=== PATIENT | female | born 1955 | race Caucasian/White ===

== ENCOUNTER 2019-04-03 07:57 | Outpatient (RCR) | payer OTHER, SELFPAY ==
--- NOTE | 2019-04-03 08:51 | PTOPEVAL ---
Thank you for referring this patient to [facility] [place]. Please review, sign, date and return this plan of care SADIQ. I agree with and certify that the following plan of care is medically necessary. Referring Physician Date Admitting Provider: Attending Provider: Joselyn Montoya NP Referring Provider: *[facility] Outpatient Evaluation Start: 04/03/19 08:13 Freq: Status: Active Protocol: Document 04/03/19 08:14 Breanna (Rec: 04/03/19 08:43 [id number]) Therapy Assessment Status Assessment Status Assessment Status Evaluation Outpatient Past Medical History Cardiovascular History Hx Hypertension Yes Gastrointestinal History Hx Gall Bladder Disease Yes Endocrine History Hx Diabetes Yes Reproductive History Hx Hysterectomy Yes Evaluation Information Problem Diagnosis R shoulder pain Onset 03/26/19 Subjective Information patient reports she fell last Query Text:As Reported By Patient/ tuesday injuring her R shoulder Family . she reports she was chasing after her dog when her foot slipped out from under her. she reports she fell forward and landed with her R arm/ shoulder tucked into her side. she reports she could feel pain right away. she reports x -rays were negative for acute injury. Prior Level of Function Comments Additional Prior Level of Function patient reports she has Comments difficulty lifting her R shoulder above her head. she reports she also is having some rib pain and trouble breathing due to this rib pain . patient reports prior to her fall, no issues with her R shoulder at all. she reports she was independent and pain free with reaching overhead into cabinets and lifting objects up from tables. Pain Assessment Timing of Pain Assessment Timing of Pain Assessment Assessment Pain Scale Pain Scale Used Numeric (1 - 10) Self Report Pain Assessment Right Shoulder(s) Reported Pain Level 7 Pain Description Stabbing Pain Frequency Acute,Continuous Current Pain Intensity 7 Lowest Pain Intensity 4 Greatest Pain Intensity
--- NOTE | 2019-05-03 15:43 | PCPTNOTE ---
05/03/19 - patient has called and reprots that she would like to perform exercises on her own at home. she will be dc'd from skilled PT services and all progress towards goals will be taken from her most recent evaluation/note. JUSTIN
== END 2019-04-03 09:28 | disposition home or self-care (01) ==
LOC: CHSPT 07:57
PROVIDERS: PCP Nurse Practitioner Family; Visit Provider Nurse Practitioner Family
DX: M25.511 Pain in right shoulder (principal)
CPT/HCPCS: 97014; 97110; 97161; G0283

== ENCOUNTER 2020-01-15 01:33 | Outpatient (CLI) | payer OTHER, SELFPAY ==
[2020-01-15 20:51] LABS: SARS-CoV-2 RNA PCR Negative
== END 2020-01-15 01:34 | disposition home or self-care (01) ==
LOC: ANHCOVIDDT 01:34
PROVIDERS: PCP Family Medicine; Visit Provider Surgery
DX: Z01.812 Encounter for preprocedural laboratory examination (principal); Z20.828 Contact with and (suspected) exposure to other viral communicable diseases
CPT/HCPCS: 87635; C9803; U0003

== ENCOUNTER 2020-01-17 01:52 | Day surgery (SDC) | payer OTHER, SELFPAY ==
[2020-01-11 13:39] VITALS: BMI 40.2
--- NOTE | 2020-01-16 12:23 | WPDANESEPPF ---
Anes - Initial Pre Proc Eval Procedure: Operation Date: 01/17/20 08:30 Proposed Procedures p Screening Colonoscopy - Vlad Nash DO Date/Time: 01/16/20 12:23 Surgeon: Vlad Nash DO Pre Op Diagnosis: neoplasm screening Patient Data Age: 64 Gender: F Height: 1.73 m Weight: 120 kg Allergies Allergy/AdvReac Type Severity Reaction Status Date / Time No Known Allergies Allergy Verified 01/11/20 13:35 Home Medications Medication Instructions Recorded Confirmed Type metformin 1,000 mg tablet 1,000 mg PO BID #180 tablet 05/16/19 01/11/20 Rx glimepiride 4 mg tablet 4 mg PO QAM #30 tablet 11/30/19 01/11/20 Rx lisinopril 20 1 tablet PO DAILY #30 tablet 11/30/19 01/11/20 Rx mg-hydrochlorothiazide 25 mg tablet pantoprazole 40 mg tablet,delayed See Rx Instructions .ROUTE 11/30/19 01/11/20 Rx release .COMPLEX #30 tablet verapamil 240 mg 24 hr 240 mg PO DAILY #30 cap 11/30/19 01/11/20 Rx capsule,extended release blood sugar diagnostic #100 ea 12/25/19 Rx lancets 33 gauge #100 ea 12/25/19 Rx atorvastatin [Lipitor] 40 mg PO DAILY 01/11/20 01/17/20 History citalopram [Celexa] 20 mg PO DAILY 01/11/20 01/11/20 History Patient hx anesthesia problems: none Family hx anesthesia problems: none PMFSH Past Medical History Medical History (Updated 01/16/20 @ 12:24 by Poncho Turner MD) Chronic GERD Depression Hyperlipidemia Hypertension Irregular bowel habits Morbid obesity with BMI of 40.0-44.9, adult Tension headache Type 2 diabetes mellitus Surgical History Surgical History H/O: hysterectomy Hx of cholecystectomy Family History Family History Father Stomach cancer Mother Breast cancer Liver cancer Social History Social History Smoking packs per day: 1 Smoking cigarettes per day: 20.0 Years smoked: 35 Smoking pack-years: 35.00 Smoking status: Current every day smoker Tobacco type: cigarettes Alcohol intake: current Substance use: never Substance use type: does not use Living arrangements: alone 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 Gender identity (if verbalized by the patient): Female Sexual Orientation (if Verbalized by the Patient): Straight or Heterosexual Spiritual care concerns: No Anes - Eval Final PreProcedure Day of Procedure 01/16/20 12:23 Patient weight: morbidly obese Heart: regular rate and rhythm Lungs: clear to auscultation and normal air movement Airway: Mallampati scale class II Neurological: alert and oriented Last oral intake: >/= 8 hours ASA classification: III Emergent: no Anesthetic plan: proceed Anesthesia type and monitoring: general GIVS Informed Consent: The patient's anesthetic plan and its attendant risks and benefits were discussed with the patient/family/POA. Questions were solicited and answers provided to the satisfaction of the patient/family/POA.
[2020-01-17 07:47] VITALS: BP 137/62; PULSE 66; RESP 14; TEMP 36.2; O2SAT 96
[2020-01-17] MEDS: LACTATED RINGERS 1,000 ML 150 ML IV CONT (07:51)
[2020-01-17 07:57] LABS: Glucose Point of Care 268 (65-105)
--- NOTE | 2020-01-17 08:47 | PM.IMHP ---
H&P: HPI History of Present Illness Date/Time: 01/17/20 08:47 Chief complaint: neoplasm screening Narrative: Charity Martin is a 64 year old female who presents for colonoscopy. Last colonoscopy was 7-8 years ago and polyps were found. She has also been experiencing chronic diarrhea. Denies fam hx colon cancer. Review of Systems Review of Systems: All systems reviewed & are unremarkable except as noted in HPI and below Eyes: Eyes: Denies change in vision ENT: Denies hearing loss, Denies neck pain and Denies sore throat Cardiovascular: Cardiovascular: Denies chest pain and Denies dyspnea Respiratory: Respiratory: Denies cough, Denies dyspnea and Denies wheezing Genitourinary: Genitourinary: Denies hematuria and Denies dysuria Musculoskeletal: Musculoskeletal: Denies arthralgias, Denies joint swelling and Denies neck pain Allergic/Immunologic: Allergic/Immunologic: Denies wheezing PMFSH Past Medical History Medical History Chronic GERD Depression Hyperlipidemia Hypertension Irregular bowel habits Morbid obesity with BMI of 40.0-44.9, adult Tension headache Type 2 diabetes mellitus Surgical History Surgical History H/O: hysterectomy Hx of cholecystectomy Family History Family History Father Stomach cancer Mother Breast cancer Liver cancer Social History Social History Smoking packs per day: 1 Smoking cigarettes per day: 20.0 Years smoked: 35 Smoking pack-years: 35.00 Smoking status: Current every day smoker Tobacco type: cigarettes Alcohol intake: current Substance use: never Substance use type: does not use Living arrangements: alone 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 Gender identity (if verbalized by the patient): Female Sexual Orientation (if Verbalized by the Patient): Straight or Heterosexual Spiritual care concerns: No Meds Home Medications and Allergies Home Medications Medication Instructions Recorded Confirmed Type metformin 1,000 mg tablet 1,000 mg PO BID #180 tablet 05/16/19 01/11/20 Rx glimepiride 4 mg tablet 4 mg PO QAM #30 tablet 11/30/19 01/11/20 Rx lisinopril 20 1 tablet PO DAILY #30 tablet 11/30/19 01/11/20 Rx mg-hydrochlorothiazide 25 mg tablet pantoprazole 40 mg tablet,delayed See Rx Instructions .ROUTE 11/30/19 01/11/20 Rx release .COMPLEX #30 tablet verapamil 240 mg 24 hr 240 mg PO DAILY #30 cap 11/30/19 01/11/20 Rx capsule,extended release blood sugar diagnostic #100 ea 12/25/19 Rx lancets 33 gauge #100 ea 12/25/19 Rx atorvastatin [Lipitor] 40 mg PO DAILY 01/11/20 01/17/20 History citalopram [Celexa] 20 mg PO DAILY 01/11/20 01/11/20 History Allergies Allergy/AdvReac Type Severity Reaction Status Date / Time No Known Allergies Allergy Verified 01/11/20 13:35 Vital Signs Vital Signs - 24 hr 01/17/20 07:47 Temperature 36.2 C L Pulse Rate 66 Respiratory Rate 14 Blood Pressure 137/62 Pulse Oximetry 96 Exam Const: General: alert; No acute distress Orientation/consciousness: patient oriented x3 Limitations: no limitations HENMT: Head: normocephalic and atraumatic Ears: hearing grossly normal bilaterally General nose exam: Normal external nose present and Normal nares present Mouth: Yes Normal oral and palatal mucosa present and Yes moist mucous membranes Eyes: General: appearance normal, both eyes and all related structures Conjunctivae: conjunctivae normal Sclera: sclerae normal Pupils: Equal, round and reactive pupils present EOM: EOMs intact bilaterally Neck: Neck: normal visual inspection, full ROM, no lymphadenopathy, supple and no JVD Lymphatic: no lymphadenopathy noted Chest: Chest palpation & inspection: normal inspection of the chest Resp: Effort
[2020-01-17 09:54] VITALS: BP 125/89; PULSE 78; RESP 16; O2SAT 98
[2020-01-17 10:04] VITALS: BP 145/63; PULSE 64; RESP 18; O2SAT 98
[2020-01-17 10:14] VITALS: BP 104/55; PULSE 64; RESP 18; O2SAT 95
[2020-01-17] MEDS: ONDANSETRON INJ 4 MG/2 ML VIAL IV PUSH (10:20)
[2020-01-17 10:24] VITALS: BP 122/60; PULSE 60; RESP 18; O2SAT 95
[2020-01-17 10:34] VITALS: BP 163/84; PULSE 60; RESP 18; O2SAT 97
== END 2020-01-17 10:43 | disposition home or self-care (01) ==
PROVIDERS: PCP Family Medicine; Visit Provider Surgery
PROC: 0DJD8ZZ Inspection of Lower Intestinal Tract, Via Natural or Artificial Opening Endoscopic (ICD-10-PCS; CPT 45378; principal; 2020-01-17 08:30)
DX: Z12.11 Encounter for screening for malignant neoplasm of colon (principal); R19.7 Diarrhea, unspecified; D12.0 Benign neoplasm of cecum; D12.2 Benign neoplasm of ascending colon; D12.3 Benign neoplasm of transverse colon; D12.8 Benign neoplasm of rectum; K63.5 Polyp of colon; K64.8 Other hemorrhoids; I10 Essential (primary) hypertension; E78.5 Hyperlipidemia, unspecified; E11.9 Type 2 diabetes mellitus without complications; K21.9 Gastro-esophageal reflux disease without esophagitis; F32.9 Major depressive disorder, single episode, unspecified; Z68.41 Body mass index [BMI] 40.0-44.9, adult; F17.210 Nicotine dependence, cigarettes, uncomplicated
CPT/HCPCS: 45385; 45380; 88305; J2405; J2704; J7120

== ENCOUNTER 2020-03-03 13:10 | Outpatient (CLI) | payer OTHER, SELFPAY ==
[2020-03-04 18:19] LABS: SARS-CoV-2 RNA PCR Positive
== END 2020-03-03 13:11 | disposition home or self-care (01) ==
PROVIDERS: PCP Family Medicine; Visit Provider Family Medicine
DX: U07.1 COVID-19 (principal)
CPT/HCPCS: 87635; C9803; U0003

== ENCOUNTER 2021-04-09 00:03 | Day surgery (SDC) | payer OTHER, SELFPAY ==
[2021-02-13 13:20] VITALS: BMI 33.8
[2021-03-16 09:06] VITALS: BMI 33.8
--- NOTE | 2021-03-16 09:11 | PC.NURSE ---
Rescheduled for colonoscopy from February to 03/26/20. Confirmed medications, allergies and health history as well as new date and time.
[2021-03-25 16:06] VITALS: BMI 33.8
--- NOTE | 2021-03-25 16:10 | PC.NURSE ---
Spoke with pt regarding rescheduled colonoscopy. Updated pt on arrival/procedure times. Pt verbalized understanding of updated information. Pt verified no changes to health history or home medications since previous PAT call complete.
[2021-04-09 08:10] VITALS: BP 144/56; PULSE 93; RESP 20; TEMP 36.2; O2SAT 97
[2021-04-09] MEDS: LACTATED RINGERS 1,000 ML 150 ML IV CONT (08:15)
[2021-04-09 08:22] LABS: Glucose Point of Care 373 mg/dl (65-105)
--- NOTE | 2021-04-09 09:23 | WPDANESEPPF ---
Anes - Initial Pre Proc Eval Procedure: Operation Date: 04/09/21 09:15 Proposed Procedures p Colonoscopy - Vlad Nash DO Date/Time: 04/09/21 09:23 Surgeon: Vlad Nash DO Pre Op Diagnosis: hx of colon polyps Patient Data Age: 65 Gender: F Height: 1.7 m Weight: 104.4 kg Last Vital Signs Temp 97.2 F L 04/09/21 08:10 Pulse 93 04/09/21 08:10 Resp 20 04/09/21 08:10 BP 144/56 H 04/09/21 08:10 Pulse Ox 97 04/09/21 08:10 Allergies Allergy/AdvReac Type Severity Reaction Status Date / Time No Known Allergies Allergy Verified 03/25/21 16:05 Home Medications Medication Instructions Recorded Confirmed Type blood sugar diagnostic #100 ea 03/11/21 03/11/21 Rx glimepiride 4 mg tablet 4 mg PO DAILY #90 tablet 03/11/21 03/25/21 Rx lancets 33 gauge #100 ea 03/11/21 03/11/21 Rx lisinopril 20 1 tablet PO DAILY #90 tablet 03/11/21 03/25/21 Rx mg-hydrochlorothiazide 25 mg tablet nystatin 100,000 unit/gram topical 1 applic TOPICAL BID 7 Days #30 g 03/11/21 03/25/21 Rx cream pantoprazole 40 mg tablet,delayed 40 mg PO DAILY #90 tablet 03/11/21 03/25/21 Rx release verapamil 240 mg tablet,extended 240 mg PO DAILY #90 tablet 03/11/21 03/25/21 Rx release atorvastatin 40 mg PO DAILY 03/25/21 03/25/21 History citalopram 20 mg PO DAILY 03/25/21 03/25/21 History metformin 1,000 mg PO BID 03/25/21 03/25/21 History Laboratory Tests 04/09/21 08:17 POC Capillary Glucose 373 mg/dl H mg/dl (65-105) Patient hx anesthesia problems: none Family hx anesthesia problems: none Results Review: All pre-operative results and documents have been reviewed as part of the pre-operative evaluation. [facility] Past Medical History Medical History Chronic GERD Depression Hyperlipidemia Hypertension Irregular bowel habits Morbid obesity with BMI of 40.0-44.9, adult Tension headache Type 2 diabetes mellitus Surgical History Surgical History H/O: hysterectomy Hx of cholecystectomy Family History Family History Father Stomach cancer Mother Breast cancer Liver cancer Social History Social History Smoking packs per day: 1 Smoking cigarettes per day: 20.0 Years smoked: 35 Smoking pack-years: 35.00 Smoking status: Current every day smoker Tobacco type: cigarettes Alcohol intake: current Drinks per week: 3 Alcohol use details: social Substance use: never Substance use type: does not use Living arrangements: with family 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 Gender identity (if verbalized by the patient): Female Sexual Orientation (if Verbalized by the Patient): Straight or Heterosexual Spiritual care concerns: No Anes - Eval Final PreProcedure Day of Procedure 04/09/21 09:23 Patient weight: obese Heart: regular rate and rhythm Lungs: clear to auscultation Airway: Mallampati scale class II Neurological: alert and oriented Last oral intake: >/= 8 hours ASA classification: III Emergent: no Anesthetic plan: proceed Anesthesia type and monitoring: general GIVS and standard monitoring Results Review: All pre-operative results and documents have been reviewed as part of the pre-operative evaluation. Informed Consent: The patient's anesthetic plan and its attendant risks and benefits were discussed with the patient/family/POA. Questions were solicited and answers provided to the satisfaction of the patient/family/POA.
--- NOTE | 2021-04-09 09:31 | PM.IMHP ---
H&P: HPI History of Present Illness Date/Time: 04/09/21 09:31 Chief Complaint: history of colon polyps Narrative: this is a 65-year-old woman who presents for colonoscopy. She last had a colonoscopy 1 year ago and multiple polyps were removed. There was a large polyp in the cecum that was removed in a piecemeal fashion. She denies any significant changes since last colonoscopy. There is no family history of colon cancer. Review of Systems Review of Systems: All systems reviewed & are unremarkable except as noted in HPI and below Constitutional: Constitutional: Denies chills, Denies fever(s), Denies headache(s) and Denies weight loss Eyes: Eyes: Denies change in vision ENT: Denies dizziness, Denies headache(s), Denies neck mass and Denies throat swelling Cardiovascular: Cardiovascular: Denies chest pain, Denies lightheadedness and Denies dyspnea Respiratory: Respiratory: Denies cough, Denies dyspnea and Denies wheezing Gastrointestinal: Gastrointestinal: Denies abdominal pain, Denies change in bowel habits, Denies nausea and Denies vomiting Genitourinary: Genitourinary: Denies hematuria and Denies dysuria Musculoskeletal: Musculoskeletal: Reports as per HPI Integumentary/Breasts: Skin/Breast: Reports as per HPI Neurologic: Denies dizziness and Denies headache(s) Allergic/Immunologic: Allergic/Immunologic: Denies throat swelling and Denies wheezing PMF Past Medical History Medical History Chronic GERD Depression Hyperlipidemia Hypertension Irregular bowel habits Morbid obesity with BMI of 40.0-44.9, adult Tension headache Type 2 diabetes mellitus Surgical History Surgical History H/O: hysterectomy Hx of cholecystectomy Family History Family History Father Stomach cancer Mother Breast cancer Liver cancer Social History Social History Smoking packs per day: 1 Smoking cigarettes per day: 20.0 Years smoked: 35 Smoking pack-years: 35.00 Smoking status: Current every day smoker Tobacco type: cigarettes Alcohol intake: current Drinks per week: 3 Alcohol use details: social Substance use: never Substance use type: does not use Living arrangements: with family 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 Gender identity (if verbalized by the patient): Female Sexual Orientation (if Verbalized by the Patient): Straight or Heterosexual Spiritual care concerns: No Meds Home Medications and Allergies Home Medications Medication Instructions Recorded Confirmed Type blood sugar diagnostic #100 ea 03/11/21 03/11/21 Rx glimepiride 4 mg tablet 4 mg PO DAILY #90 tablet 03/11/21 03/25/21 Rx lancets 33 gauge #100 ea 03/11/21 03/11/21 Rx lisinopril 20 1 tablet PO DAILY #90 tablet 03/11/21 03/25/21 Rx mg-hydrochlorothiazide 25 mg tablet nystatin 100,000 unit/gram topical 1 applic TOPICAL BID 7 Days #30 g 03/11/21 03/25/21 Rx cream pantoprazole 40 mg tablet,delayed 40 mg PO DAILY #90 tablet 03/11/21 03/25/21 Rx release verapamil 240 mg tablet,extended 240 mg PO DAILY #90 tablet 03/11/21 03/25/21 Rx release atorvastatin 40 mg PO DAILY 03/25/21 03/25/21 History citalopram 20 mg PO DAILY 03/25/21 03/25/21 History metformin 1,000 mg PO BID 03/25/21 03/25/21 History Allergies Allergy/AdvReac Type Severity Reaction Status Date / Time No Known Allergies Allergy Verified 03/25/21 16:05 Vital Signs Vital Signs - 24 hr 04/09/21 08:10 Temperature 36.2 C L Pulse Rate 93 Respiratory Rate 20 Blood Pressure 144/56 H Pulse Oximetry 97 Exam Const: General: no acute distress and alert Orientation/consciousness: patient oriented x3 HENMT: Head: normocephalic and atraumatic Ears: hearing grossly normal bilaterally General nose
[2021-04-09 10:05] VITALS: BP 122/67; PULSE 79; RESP 18; O2SAT 96
[2021-04-09 10:15] VITALS: BP 135/70; PULSE 85; RESP 19; O2SAT 98
[2021-04-09 10:25] VITALS: BP 130/72; PULSE 75; RESP 25; O2SAT 98
== END 2021-04-09 10:29 | disposition home or self-care (01) ==
PROVIDERS: PCP Family Medicine; Visit Provider Surgery
PROC: 0DJD8ZZ Inspection of Lower Intestinal Tract, Via Natural or Artificial Opening Endoscopic (ICD-10-PCS; CPT 45378; principal; 2021-04-09 09:15)
DX: Z12.11 Encounter for screening for malignant neoplasm of colon (principal); K62.1 Rectal polyp; K63.5 Polyp of colon; I10 Essential (primary) hypertension; E78.5 Hyperlipidemia, unspecified; E11.9 Type 2 diabetes mellitus without complications; K21.9 Gastro-esophageal reflux disease without esophagitis; F32.9 Major depressive disorder, single episode, unspecified; E66.9 Obesity, unspecified; Z68.36 Body mass index [BMI] 36.0-36.9, adult; F17.210 Nicotine dependence, cigarettes, uncomplicated; Z79.84 Long term (current) use of oral hypoglycemic drugs
CPT/HCPCS: 45380; 82948; 88305; J2704; J7120

== ENCOUNTER 2022-06-18 13:28 | Outpatient (CLI) | payer MEDICARE, SELFPAY ==
[2022-06-18 13:43] LABS: Hematocrit 45.2 % (35.0-42.0); Hemoglobin 15.1 g/dL (11.7-13.8); Mean Corpuscular HGB Conc 33.4 g/dL (32.0-36.0); Mean Corpuscular Hemoglobin 29.5 pg (27.0-31.0); Mean Corpuscular Volume 88.3 fL (78.0-102.0); Mean Platelet Volume 9.1 fl (9.2-11.8); Platelet Count Result 335 K/mm3 (150-420); Red Blood Count 5.12 M/mm3 (4.20-5.40); Red Cell Distribution Width 12.8 % (11.6-14.4)
[2022-06-18 14:01] LABS: Creatinine Urine 47.01 mg/dL (40-278); MALB Creatinine Ratio 27.6 mg/g (0-30); Microalbumin Urine Random < 13.0 mg/L
[2022-06-18 14:03] LABS: Hemoglobin A1C 10.2 % (<5.7)
[2022-06-18 14:26] LABS: Alanine Aminotransferase 30 U/L (14-59); Albumin Level 3.7 g/dL (3.4-5.0); Alkaline Phosphatase 144 U/L (46-116); Anion Gap 10 mmol/L (8-16); Aspartate Amino Transferase 19 U/L (15-37); Bilirubin,Total 0.5 mg/dL (0.00-1.00); Blood Urea Nitrogen 9 mg/dL (7-18); Calcium 9.5 mg/dL (8.5-10.1); Carbon Dioxide 28 mmol/L (21-32); Chloride 99 mmol/L (98-108); Cholesterol 195 mg/dL (0-200); Estimated Glomerular Filt Rate > 60; Glucose 153 mg/dL (70-99); HDL Direct 46 mg/dL (40-60); LDL Cholesterol Calculated 108 mg/dL (<130); Osmolality Calculated 285 mOsm/kg (285-295); Potassium 3.9 mmol/L (3.5-5.1); Sodium 137 mmol/L (136-145); Total Protein 7.3 g/dL (6.4-8.2); Triglycerides 203 mg/dL (0-150)
== END 2022-06-18 13:29 | disposition home or self-care (01) ==
PROVIDERS: PCP Family Medicine; Visit Provider Family Medicine
DX: I10 Essential (primary) hypertension (principal); E11.9 Type 2 diabetes mellitus without complications
CPT/HCPCS: 36415; 80053; 80061; 82043; 83036; 85027

== ENCOUNTER 2022-06-23 08:49 | Outpatient (CLI) | payer MEDICARE, SELFPAY ==
--- NOTE | ~2022-06-23 | MM_ITS ---
EXAMINATION: MM screening karthik BI w cristy HISTORY: Screening mammogram, family history of breast cancer in her mother. TECHNIQUE: Craniocaudal and mediolateral oblique 3-D tomosynthesis images were obtained and synthetic 2-D images were generated. CAD analysis was submitted and interpreted. COMPARISON: 09/07/2017 and 06/12/2012 BREAST PARENCHYMAL COMPOSITION:There are scattered areas of fibroglandular density. FINDINGS: Stable probable intramammary lymph nodes. No suspicious mass, calcification, or architectur al distortion are identified in either breast to suggest malignancy. There has been no suspicious int erval change. IMPRESSION: No mammographic evidence of malignancy. Recommend routine screening mammography in one year. BI-RADS Category 2: Benign finding(s). Reviewed, dictated and finalized at location .
== END 2022-06-23 08:50 | disposition home or self-care (01) ==
LOC: CHSIMG 08:50
PROVIDERS: PCP Family Medicine; Visit Provider Family Medicine
DX: Z12.31 Encounter for screening mammogram for malignant neoplasm of breast (principal)
CPT/HCPCS: 77063; 77067

== ENCOUNTER 2023-11-15 08:17 | Outpatient (CLI) | payer MEDICARE, SELFPAY ==
[2023-11-15 08:31] LABS: Basophils Absolute Auto 0.07 K/mm3 (0.00-0.10); Basophils Percent Auto 0.6 % (0.0-1.0); Eosinophils Absolute Auto 0.12 K/mm3 (0.02-0.50); Eosinophils Percent Auto 1.1 % (1.0-6.0); Hematocrit 42.5 % (35.0-42.0); Hemoglobin 14.3 g/dL (11.7-13.8); Immature Granulocyte Absolute 0.05 K/mm3 (0.00-0.00); Immature Granulocyte Percent A 0.4 % (0.0-0.0); Lymphocytes Absolute Auto 3.61 K/mm3 (1.10-4.50); Lymphocytes Percent Auto 31.6 % (18.0-42.0); Mean Corpuscular HGB Conc 33.6 g/dL (32-36); Mean Corpuscular Volume 89.3 fL (78.0-102.0); Mean Platelet Volume 8.6 fl (9.2-11.8); Monocytes Absolute Auto 0.89 K/mm3 (0.10-0.90); Monocytes Percent Auto 7.8 % (2.0-11.0); Neutrophils Absolute Auto 6.67 K/mm3 (1.70-7.20); Neutrophils Percent Auto 58.5 % (50.0-70.0); Platelet Count Result 318 K/mm3 (150-420); Red Blood Count 4.76 M/mm3 (4.20-5.40); Red Cell Distribution Width 13.6 % (11.6-14.4); White Blood Count 11.4 K/mm3 (4.8-10.8)
[2023-11-15 08:39] LABS: Hemoglobin A1C 6.5 % (<5.7)
[2023-11-15 09:18] LABS: Alanine Aminotransferase 19 U/L (14-59); Albumin Level 3.5 g/dL (3.4-5.0); Alkaline Phosphatase 109 U/L (46-116); Anion Gap 7 mmol/L (4-12); Aspartate Amino Transferase 11 U/L (15-37); Bilirubin,Total 0.4 mg/dL (0.00-1.00); Blood Urea Nitrogen 12 mg/dL (7-18); Calcium 9.3 mg/dL (8.5-10.1); Carbon Dioxide 30 mmol/L (21-32); Chloride 99 mmol/L (98-108); Cholesterol 184 mg/dL (0-200); Estimated Glomerular Filt Rate 59; Glucose 149 mg/dL (70-99); HDL Direct 48 mg/dL (40-60); LDL Cholesterol Calculated 96 mg/dL (<130); Osmolality Calculated 284 mOsm/kg (285-295); Potassium 4.2 mmol/L (3.5-5.1); Sodium 136 mmol/L (136-145); Total Protein 6.8 g/dL (6.4-8.2); Triglycerides 200 mg/dL (0-150)
[2023-11-15 09:19] LABS: Thyroid Stimulating Hormone Reflex 1.31 u/IU/mL (0.36-3.74)
[2023-11-17 08:14] LABS: Vitamin D 25 Hydroxy 20 ng/mL (30-100)
== END 2023-11-15 08:18 | disposition home or self-care (01) ==
LOC: CHSLAB 08:20
PROVIDERS: PCP Family Medicine; Visit Provider Nurse Practitioner Family
DX: F32.9 Major depressive disorder, single episode, unspecified (principal); E66.01 Morbid (severe) obesity due to excess calories; E11.9 Type 2 diabetes mellitus without complications; Z68.41 Body mass index [BMI] 40.0-44.9, adult
CPT/HCPCS: 36415; 80053; 80061; 82306; 83036; 84443; 85025

== ENCOUNTER 2024-12-20 07:20 | Outpatient (CLI) | payer MEDICARE, SELFPAY ==
--- NOTE | ~2024-12-20 | MM_ITS ---
EXAMINATION: MM screening karthik BI w cristy HISTORY: Screening TECHNIQUE: Craniocaudal and mediolateral oblique 3-D tomosynthesis images were obtained and synthetic 2-D images were generated. CAD analysis was submitted and interpreted. COMPARISON: Comparison to multiple prior studies sequentially, with oldest reviewed study dated 05/29/2010. BREAST PARENCHYMAL COMPOSITION: There are scattered areas of fibroglandular density. FINDINGS: There is no evidence of suspicious mass, calcification, or architectural distortion to suggest malignancy in either breast. Scattered benign-appearing calcifications are present. IMPRESSION: 1. No mammographic evidence of malignancy. 2. Recommend routine screening mammography in one year. BI-RADS Category 2: Benign finding(s). Reviewed, dictated and finalized at location B.
--- NOTE | ~2024-12-20 | CT_ITS ---
EXAMINATION:CT lung screening DATE: 12/20/2024 07:45 INDICATION: Personal history of nicotine dependence. TECHNIQUE: Computed tomography (CT) of the chest was performed without intravenous contrast. Automated exposure control and iterative reconstruction technique were employed. The dose-length product (DLP) was 219.90 mGy-cm. COMPARISON: None. FINDINGS: The lungs demonstrate mild atelectasis. There are a few nodules in the lungs measuring up to 5 mm in right upper lobe. A calcified left lung nodule is consistent with old granulomatous disease. No pleural effusion. The heart size is normal. There are coronary artery calcifications. No pericardial effusion. There are changes of cholecystectomy. There is severe cervical and thoracic spondylosis. IMPRESSION: 1. Lung-RADS category 2: Benign appearance or behavior. Continue annual screening with noncontrast low-dose chest CT in 12 months. Reviewed, dictated and finalized at location E. IMPRESSION: 1. Lung-RADS category 2: Benign appearance or behavior. Continue annual screeni ng with noncontrast low-dose chest CT in 12 months.
[2024-12-20 07:53] LABS: Hematocrit 45.6 % (35.0-42.0); Hemoglobin 15.1 g/dL (11.7-13.8); Immature Granulocyte Percent A 0.5 % (0.0-0.0); Lymphocytes Absolute Auto 3.89 K/mm3 (1.10-4.50); Mean Corpuscular HGB Conc 33.1 g/dL (32-36); Mean Corpuscular Hemoglobin 29.4 pg (27.0-31.0); Mean Corpuscular Volume 88.7 fL (78.0-102.0); Nucleated Red Blood Cells Absolute Auto 0.00 K/mm3 (0.00-0.00); Nucleated Red Blood Cells Perc 0.0 % (0-0.0); Platelet Count Result 318 K/mm3 (150-420); Red Blood Count 5.14 M/mm3 (4.20-5.40); White Blood Count 11.4 K/mm3 (4.8-10.8)
[2024-12-20 08:39] LABS: Hemoglobin A1C 7.0 % (<5.7)
[2024-12-20 08:57] LABS: Alanine Aminotransferase 17 U/L (6-35); Albumin Level 4.4 g/dL (3.5-5.1); Alkaline Phosphatase 123 U/L (38-126); Anion Gap 10 mmol/L (4-12); Aspartate Amino Transferase 21 U/L (14-36); Bilirubin,Total 0.6 mg/dL (0.2-1.3); Blood Urea Nitrogen 13 mg/dL (7-17); Calcium 9.9 mg/dL (8.4-10.2); Carbon Dioxide 26 mmol/L (22-30); Chloride 102 mmol/L (98-107); Cholesterol 221 mg/dL (0-200); Estimated Glomerular Filt Rate > 60; Glucose 169 mg/dL (65-110); HDL Direct 52 mg/dL; Osmolality Calculated 290 mOsm/kg (285-295); Potassium 4.4 mmol/L (3.4-5.0); Sodium 138 mmol/L (137-145); Total Protein 8.3 g/dL (6.3-8.2); Triglycerides 236 mg/dL (<150)
[2024-12-20 08:59] LABS: MALB Creatinine Ratio 6.4 mg/g (0-30)
[2024-12-20 09:27] LABS: Thyroid Stimulating Hormone Reflex 2.840 uIU/mL (0.465-4.68)
== END 2024-12-20 07:21 | disposition home or self-care (01) ==
LOC: CHSIMG 07:21
PROVIDERS: PCP Family Medicine; Visit Provider Nurse Practitioner Family
DX: E11.9 Type 2 diabetes mellitus without complications (principal); E78.5 Hyperlipidemia, unspecified; Z12.31 Encounter for screening mammogram for malignant neoplasm of breast; Z12.2 Encounter for screening for malignant neoplasm of respiratory organs; Z87.891 Personal history of nicotine dependence; M79.669 Pain in unspecified lower leg; E55.9 Vitamin D deficiency, unspecified
CPT/HCPCS: 36415; 71271; 77063; 77067; 80053; 80061; 82043; 82306; 83036; 84443; 85025

== ENCOUNTER 2024-12-21 08:51 | Emergency (ER) | payer MEDICARE, SELFPAY ==
[2024-12-21 08:51] VITALS: BP 171/68; PULSE 92; RESP 20; TEMP 36.3; O2SAT 97
--- NOTE | 2024-12-21 09:00 | ED_ITS ---
HPI - General Adult General Chief complaint: Unspecified Stated complaint: left hand numbness Source: patient Mode of arrival: ambulatory Limitations: no limitations History of Present Illness HPI narrative: 69-year-old with a history of hypertension, diabetes presents to the ER with a complaint of left arm numbness which started last night woke up this morning stating her left leg is numb as well. Denies any headache or motor weakness. No previous history of TIA or CVA. Onset (ago): day(s) (1) Location: upper extremity (left) and lower extremity (left) Severity: moderate Quality: other (numb) Pain Consistency: constant Exacerbating factors: none Associated symptoms: denies other symptoms Treatments prior to arrival: none Related Data Allergies Allergy/AdvReac Type Severity Reaction Status Date / Time No Known Allergies Allergy Verified 12/21/24 09:04 Review of Systems Review of Systems: All systems reviewed & are unremarkable except as noted in HPI and below Constitutional: Constitutional: Reports no additional constitutional complaints Eyes: Eyes: Reports no additional eye complaints ENT: Reports system reviewed and no additional complaints, except as documented Cardiovascular: Cardiovascular: Reports no additional cardiovascular complaints Respiratory: Respiratory: Reports no additional respiratory complaints Gastrointestinal: Gastrointestinal: Reports no additional gastrointestinal complaints Musculoskeletal: Musculoskeletal: Reports no additional musculoskeletal complaints Neurologic: Reports as per HPI [facility] Past Medical History Medical History Morbid obesity with BMI of 40.0-44.9, adult Irregular bowel habits Tension headache Type 2 diabetes mellitus Hypertension Hyperlipidemia Chronic GERD Depression Surgical History Surgical History H/O: hysterectomy Hx of cholecystectomy Family History Family History Father Stomach cancer Mother Breast cancer Liver cancer Social History Social History Smoking packs per day: 1 Smoking cigarettes per day: 20.0 Years smoked: 35 Smoking pack-years: 35.00 Smoking status: Current every day smoker Tobacco type: cigarettes Alcohol intake: current Drinks per week: 3 Alcohol use details: social Substance use: never Substance use type: does not use Living arrangements: with family Occupation/Education: retired 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 HEAD: Normocephalic, atraumatic. EYES: PERRLA and EOMI. ENT: Nares clear, no rhinorrhea or epistaxis. Mucous membranes moist. NECK: Supple. CHEST: Clear to auscultation. No respiratory distress. HEART: Regular rate and rhythm. No murmur heard. Normal peripheral pulses. ABDOMEN: Soft, nontender, nondistended, normal active bowel sounds. EXTREMITIES: Normal range of motion. No edema. SKIN: Warm, dry, no rash. NEURO: No focal deficits. Alert and oriented x3. PSYCH: Normal mood and affect. Course Course Emergency Course: Notified patient about the possible transfer to [place] [facility] as our CT scanner is down , discussed with Dr. Kaplan will accept to the ER Medical Decision Making Differential Diagnosis Differential Diagnosis: CVA , radiculopathy ,Anxiety Medical Records Medical records reviewed: Yes I reviewed the external patient's medical records. ECG Data EKG #1: ECG completion date: 12/21/24 ECG completion time: 09:11 EKG Interpretation: normal rate (79), no ST changes, normal QRS and no acute changes Discharge Plan Discharge Clinical Impression: Numbness and tingling of left arm and leg Patient Disposition: Acute Care Hospital Condition: Stable Patient Language: Frisian Prescriptions: No Action Adacel(Tdap Adolesn/Adult)(PF) 2 Lf-(2.5-5-3-5 mcg)-5Lf/0.5 mL syringe 0.5 ml IM ONCE Qty: 1 0RF atorvastatin 40 mg tablet 40 mg PO DAILY Qty: 90 3RF Rx Instructions: TAKE ONE TABLET BY MOUTH DAILY dapagliflozin propanediol 10 mg tablet 10 mg PO DAILY 90 Days Qty: 90 4RF (DME) OneTouch Ultra Test Strip See Rx Instructions .Route Qty: 100 4RF Rx Instructions: Daily (DME) blood-glucose meter [OneTouch Ultra2 Meter] Misc See Rx Instructions .Route Qty: 1 0RF Rx Instructions: As directed (DME) lancets [BD Ultra Fine Lancets] 33 gauge misc See Rx Instructions .ROUTE .MEDSUPPLY Qty: 100 3RF Rx Instructions: As directed. Testing once daily. Dx: E11.9 (DME) Dexcom G7 Second Facing Baster Misc See Rx Instructions .Route Qty: 1 0RF Rx Instructions: ACHS lisinopril-hydrochlorothiazide 20-25 mg tablet 1 tablet PO DAILY Qty: 90 3RF Ozempic 1 mg/dose (4 mg/3 mL) pen injector 1 mg subcut WEEKLY Qty: 3 3RF pantoprazole 40 mg tablet,delayed release (DR/EC) See Rx Instructions .ROUTE .COMPLEX Qty: 90 0RF Dose Instruction: TAKE 1 TABLET BY MOUTH EVERY DAY Rx Instructions: TAKE 1 TABLET BY MOUTH EVERY DAY verapamil 240 mg tablet extended release See Rx Instructions .ROUTE .COMPLEX Qty: 90 1RF Dose Instruction: TAKE 1 TABLET BY MOUTH EVERY DAY Rx Instructions: TAKE 1 TABLET BY MOUTH EVERY DAY citalopram 20 mg tablet See Rx Instructions .ROUTE .COMPLEX Qty: 90 1RF Dose Instruction: 20 MG ORALLY DAILY Rx Instructions: 20 MG ORALLY DAILY (DME) Dexcom G7 Sensor Device See Rx Instructions .ROUTE .COMPLEX Qty: 1 1RF Dose Instruction: BEFORE MEALS AND AT BEDTIME Rx Instructions: BEFORE MEALS AND AT BEDTIME Follow-up/Referrals: Mark Anthony Hayden DO [Primary Care Provider, Family [facility]] Time of Disposition: 09:24
--- NOTE | 2024-12-21 09:00 | ECG_ITS ---
Test Date: 2024-12-21 09:11:43 Measurements Intervals [place] Rate: 79 P: 40 AR: 170 QRS: 32 QRSD: 94 T: 42 QT: 398 QTc: 459 Interpretive Statements SINUS RHYTHM POSSIBLE RIGHT VENTRICULAR CONDUCTION DELAY MINIMAL Q WAVES- INFERIOR LEADS BORDERLINE ST-T WAVE ABNORMALITY- INF/LAT LEADS BORDERLINE ECG No previous ECG available for comparison Electronically Signed On 12-21-2024 10:20:57 CDT by Kwadwo Hickey D.O.
[2024-12-21 09:04] VITALS: PULSE 87; RESP 19; O2SAT 96
[2024-12-21 09:14] VITALS: PULSE 76
[2024-12-21 09:14] LABS: Hematocrit 42.6 % (35.0-42.0); Hemoglobin 14.5 g/dL (11.7-13.8); Immature Granulocyte Percent A 0.8 % (0.0-0.0); Lymphocytes Absolute Auto 4.79 K/mm3 (1.10-4.50); Mean Corpuscular HGB Conc 34.0 g/dL (32-36); Mean Corpuscular Hemoglobin 29.9 pg (27.0-31.0); Mean Corpuscular Volume 87.8 fL (78.0-102.0); Nucleated Red Blood Cells Absolute Auto 0.00 K/mm3 (0.00-0.00); Nucleated Red Blood Cells Perc 0.0 % (0-0.0); Platelet Count Result 292 K/mm3 (150-420); Red Blood Count 4.85 M/mm3 (4.20-5.40); White Blood Count 12.8 K/mm3 (4.8-10.8)
[2024-12-21 09:15] VITALS: BP 154/66; PULSE 76; RESP 16; O2SAT 95
[2024-12-21 09:24] LABS: Alanine Aminotransferase 17 U/L (6-35); Albumin Level 4.4 g/dL (3.5-5.1); Alkaline Phosphatase 139 U/L (38-126); Anion Gap 12 mmol/L (4-12); Aspartate Amino Transferase 27 U/L (14-36); Bilirubin,Total 0.9 mg/dL (0.2-1.3); Blood Urea Nitrogen 9 mg/dL (7-17); Calcium 9.5 mg/dL (8.4-10.2); Carbon Dioxide 23 mmol/L (22-30); Chloride 98 mmol/L (98-107); Estimated CRCL calculation 95 ml/min; Estimated Glomerular Filt Rate > 60; Glucose 138 mg/dL (65-110); Osmolality Calculated 276 mOsm/kg (285-295); Potassium 3.8 mmol/L (3.4-5.0); Sodium 133 mmol/L (137-145); Total Protein 8.8 g/dL (6.3-8.2)
[2024-12-21 09:36] LABS: INR 0.9; Prothrombin Time 10.4 Seconds (9.50-12.1); Troponin I < 0.012 ng/mL (0.000-0.034)
== END 2024-12-21 09:23 | disposition short-term general hospital (02) ==
PROVIDERS: Emergency Provider Family Medicine; PCP Family Medicine
DX: R20.0 Anesthesia of skin (principal); R20.2 Paresthesia of skin; I10 Essential (primary) hypertension; E11.9 Type 2 diabetes mellitus without complications; E78.5 Hyperlipidemia, unspecified; F17.210 Nicotine dependence, cigarettes, uncomplicated
CPT/HCPCS: 36415; 80053; 82948; 84484; 85025; 85610; 93005; 99285

== ENCOUNTER 2024-12-21 10:00 | Emergency (ER) | payer MEDICARE, SELFPAY ==
[2024-12-21] VITALS (7 sets, daily range): BP systolic 140–174; BP diastolic 63–69; PULSE 72–79; RESP 16–18; TEMP 36.8; O2SAT 96–98
--- NOTE | ~2024-12-21 | CT_ITS ---
EXAMINATION: CTA brain carotid DATE: 12/21/2024 10:21 INDICATION: Altered mental status. TECHNIQUE: Computed tomographic angiography (CTA) of the head was performed without and with 100 mL Omnipaque-350 intravenous contrast. CTA of the neck was performed with intravenous contrast. Automated exposure control and iterative reconstruction technique were employed. The dose-length product was 1716.69 mGy- cm. Maximum intensity projection and volume rendered 3D-reconstructions were created by the technologist on a separate workstation. COMPARISON: Head CT 07/17/2017 FINDINGS: HEAD CTA: There are scattered areas of low attenuation in the cerebral white matter. There is no intracranial hemorrhage, acute infarction, or abnormal intracranial mass lesion. There are old infarcts in the thalami bilaterally. The ventricles are normal in size. There is mucosal thickening in the paranasal sinuses. There are trace bilateral mastoid effusions. The vertebral arteries are codominant. There is no central stenosis is of basilar artery or the posterior cerebral arteries. There is no significant stenosis of intracranial internal carotid arteries or anterior or middle cerebral arteries. Anterior communicating artery is normal. The posterior communicating arteries are normal. There is no a neurysm. NECK CTA: There are no pathologically enlarged lymph nodes. There is no significant stenosis of the vertebral arteries. There is plaque in the proximal internal carotid arteries. There is 0% stenosis of the proximal right internal carotid artery relative to normal distal artery lumen diameter (NASCET c riteria). There is 11% stenosis of the proximal left internal carotid artery relative to normal distal artery lumen diameter. There is severe cervical spondylosis. IMPRESSION: 1. 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 2. Mild nonspecific cerebral white matter disease, which likely represents chronic small vessel ischemic disease. 3. 0% stenosis of the proximal right internal carotid artery relative to normal distal artery lumen diameter (NASCET criteria). 4. 11% stenosis of the proximal left internal carotid artery relative to normal distal artery lumen diameter. Reviewed, dictated and finalized at location E. IMPRESSION: 1. 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 2. Mild nonspecific cerebral white matter disease, which likely represents chromosomal disorders counselor opal small vessel ischemic disease. 3. 0% stenosis of the proximal right internal carotid artery relative to normal distal artery lumen diameter (NASCET criteria). 4. 11% stenosis of the proximal left internal carotid artery relative to normal distal artery lumen diameter.
--- NOTE | 2024-12-21 10:04 | ECG_ITS ---
Test Date: 2024-12-21 10:08:55 Measurements Intervals [place] Rate: 74 P: 30 W[place]: 181 QRS: 1 QRSD: 86 T: 57 QT: 397 QTc: 441 Interpretive Statements SINUS RHYTHM POSSIBLE RIGHT VENTRICULAR CONDUCTION DELAY CONSIDER INFERIOR INFARCT, AGE INDETERMINATE BORDERLINE ST-T WAVE ABNORMALITY- HIGH LATERAL LEADS BASELINE ARTIFACT- I, III, AVL ABNORMAL ECG Compared to ECG 12/21/2024 09:11:43 No significant changes Electronically Signed On 12-21-2024 10:22:07 CDT by Kwadwo Hickey D.O.
--- NOTE | 2024-12-21 10:12 | PC.NURSE ---
Patient taken immediately to CT after assessment of the ERP. 1012 to CT; completed with CT at 1020 to return to exam room.
--- NOTE | 2024-12-21 10:13 | ED_ITS ---
HPI - General Adult General Chief complaint: Neuro Symptoms/Deficit Stated complaint: left sided facial numbness History of Present Illness HPI narrative: 69-year-old female presented to the emergency department for evaluation of left-sided numbness. Patient states last night approximately 6:00 p.m. she had numbness of her left hand. Patient states that when she woke up this morning she felt that the numbing sensation had spread to her left face attention to her left leg. Patient has no prior history of TIA or CVA. Patient does have history of hypertension, high cholesterol and type 2 diabetes. Patient is obese. Related Data Allergies Allergy/AdvReac Type Severity Reaction Status Date / Time No Known Allergies Allergy Verified 12/21/24 09:04 Review of Systems 2 Review of Systems: All systems reviewed & are unremarkable except as noted in HPI and below PMFSH Past Medical History Medical History Morbid obesity with BMI of 40.0-44.9, adult Irregular bowel habits Tension headache Type 2 diabetes mellitus Hypertension Hyperlipidemia Chronic GERD Depression Surgical History Surgical History H/O: hysterectomy Hx of cholecystectomy Family History Family History Father Stomach cancer Mother Breast cancer Liver cancer Social History Social History Smoking packs per day: 1 Smoking cigarettes per day: 20.0 Years smoked: 35 Smoking pack-years: 35.00 Smoking status: Current every day smoker Tobacco type: cigarettes Alcohol intake: current Drinks per week: 3 Alcohol use details: social Substance use: never Substance use type: does not use Living arrangements: with family Occupation/Education: retired 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 HEAD: normocephalic, atraumatic. EYES: PERRLA/EOMI, conjunctivae clear. NOSE: Normal no drainage EARS:TMS clear with good light reflex. THROAT: Pharynx clear, no exudate. NECK: Supple. No adenopathy, no masses. RESPIRATORY: Airway patent, respirations nonlabored. Clear to auscultation bilaterally, no rales, rhonchi, wheezing. CARDIOVASCULAR: Regular rate and rhythm without murmurs rubs or gallops. ABDOMINAL: Soft, nontender, nondistended, normal bowel sounds MUSCULOSKELETAL: Moves all extremities. Strength/ROM intact, No edema, No calf tenderness. NEURO: Decreased sensation over the left hand left place with NIH score of 2, mild ataxia to the left hand, no drift of left arm SKIN: Warm, dry. Normal Color Course Vital Signs Vital signs: Vital Signs Pulse Rate 74 12/21/24 10:00 Respiratory Rate 18 12/21/24 10:00 Blood Pressure 154/68 H 12/21/24 10:00 Pulse Oximetry 98 12/21/24 10:00 Oxygen Delivery Room Air 12/21/24 10:00 Temperature 98.2 F 12/21/24 11:30 Pulse Rate 75 12/21/24 14:45 Respiratory Rate 18 12/21/24 14:45 Blood Pressure 145/69 H 12/21/24 14:45 Pulse Oximetry 96 12/21/24 14:45 Oxygen Delivery Room Air 12/21/24 10:00 Medical Decision Making MDM Narrative Medical decision making narrative: 61-year-old female present to the emergency department for evaluation for decreased sensation of her left hand and left face. Patient states the symptoms started last night at 6:00 p.m. and she was initially concerned that they were worsening. Patient is afebrile but does have a leukocytosis 11.[address] a shows old thalamic infarcts with no acute infarction. No other large vessel occlusions. Case was discussed with Neurology at [facility] and patient was accepted by Dr. Hall for transfer. Patient was updated on the results of workup plan for transfer. Differential Diagnosis Differential Diagnosis: CVA, TIA, peripheral neuropathy, seizure, migraine Vital Signs Vital Signs: Vital Signs Pulse Rate 74 12/21/24 10:00 Respiratory Rate 18 12/21/24 10:00 Blood Pressure 154/68 H 12/21/24 10:00 Pulse Oximetry 98 12/21/24 10:00 Oxygen Delivery Room Air 12/21/24 10:00 Temperature 98.2 F 12/21/24 11:30 Pulse Rate 75 12/21/24 14:45 Respiratory Rate 18 10/10/25 14:45 Blood Pressure 145/69 H 12/21/24 14:45 Pulse Oximetry 96 12/21/24 14:45 Oxygen Delivery Room Air 12/21/24 10:00 Lab Data Lab results reviewed: Yes I reviewed the patient's lab results. 12/21/24 10:30 12/21/24 10:30 Labs: Lab Results 12/21/24 12/21/24 12/21/24 Range/Units 10: 10:30 10:41 WBC 11.6 H (4.5-10.0) K/mm3 RBC 4.46 (4.2-5.4) M/mm3 Hgb 13.2 (12.0-15.0) g/dL Hct 38.8 (37.0-47.0) % MCV 87.0 (80-100) fl MCH 29.6 (26-34) pg MCHC 34.0 (32-36) g/dl RDW 13.2 (11.5-14.5) % Plt Count 252 (150-375) k/mm3 MPV 8.6 (7.4-10.4) fl Immature Gran % (Auto) 0.5 (0-0.5) % Neut % (Auto) 52.1 (45.5-73.1) % Lymph % (Auto) 37.5 (18.3-44.2) % [place] % (Auto) 8.5 (2.6-8.5) % Eos % (Auto) 0.8 (0-4.4) % Baso % (Auto) 0.6 (0.2-1.2) % Lymph # (Auto) 4.35 H (0.9-3.2) K/mm3 [place] # (Auto) 1.0 H (0.1-0.6) K/mm3 Eos # (Auto) 0.1 (0-0.3) K/mm3 Baso # (Auto) 0.1 (0.0-0.1) K/mm3 Abs Immat Gran (auto) 0.06 H (0.00-0.031) K/mm3 Absolute Neuts (auto) 6.0 (1.3-6.7) K/mm3 Absolute Nucleated RBC 0.000 (0.0-0.012) K/mm3 Nucleated RBC % 0.0 (0.0-0.2) % PT 13.2 (11.1-14.7) Seconds INR 1.0 APTT 21.8 L (22.3-36.8) Seconds Sodium 127 L (137-145) mmol/L Potassium 3.9 (3.4-5.0) mmol/L Chloride 96 L (98-107) mmol/L Carbon Dioxide 25 (22-30) mmol/L Anion Gap 6 (4-12) mmol/L BUN 10 (7-17) mg/dL Creatinine 0.66 L (0.7-1.0) mg/dL Estim Creat Clear Calc 91 ml/min Estimated GFR > 60 (59 - ) Glucose 114 H (65-110) mg/dL POC Capillary Glucose 116 H (65-105) mg/dl Lactic Acid 1.4 (0.7-2.0) mmol/L Calcium 8.6 (8.4-10.2) mg/dL Total Bilirubin 0.6 (0.2-1.3) mg/dL AST 19 (14-36) U/L ALT 15 (6-35) U/L Alkaline Phosphatase 117 (38-126) U/L Total Protein 6.5 (6.3-8.2) g/dL Albumin 3.6 (3.5-5.1) g/dL Urine Color Yellow (Yellow) Urine Appearance Clear (Clear) Urine pH 6.5 (5.0-9.0) Ur Specific [place] 1.011 (1.001-1.035) Urine Protein Negative (Negative) mg/dL Urine Glucose (UA) Negative (Negative) mg/dL Urine Ketones Negative (Negative) mg/dL Ur Blood (Man) Negative (Negative) Urine Nitrate Negative (Negative) Urine Bilirubin Negative (Negative) Urine Urobilinogen 0.2 (<2.0) mg/dL Leukocyte Esterase Rfl Negative (Negative) BILL/UL Imaging Data Radiologist's impression: Impressions Head/Neck CTA 12/21/24 10:22 IMPRESSION: 1. 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 2. Mild nonspecific cerebral white matter disease, which likely represents chronic small vessel ischemic disease. 3. 0% stenosis of the proximal right internal carotid artery relative to normal distal artery lumen diameter (NASCET criteria). 4. 11% stenosis of the proximal left internal carotid artery relative to normal distal artery lumen diameter. Discharge Plan Discharge Clinical Impression: Acute CVA (cerebrovascular accident) Patient Disposition: Acute Care Hospital Condition: Serious Patient Language: [place] Citizen Prescriptions: No Action atorvastatin 40 mg tablet 40 mg PO DAILY Qty: 90 3RF Rx Instructions: TAKE ONE TABLET BY MOUTH DAILY dapagliflozin propanediol 10 mg tablet 10 mg PO DAILY 90 Days Qty: 90 4RF (DME) OneTouch Ultra Test Strip See Rx Instructions .Route Qty: 100 4RF Rx Instructions: Daily (DME) blood-glucose meter [OneTouch Ultra2 Meter] Misc See Rx Instructions .Route Qty: 1 0RF Rx Instructions: As directed (DME) lancets [BD Ultra Fine Lancets] 33 gauge misc See Rx Instructions .ROUTE .MEDSUPPLY Qty: 100 3RF Rx Instructions: As directed. Testing once daily. Dx: E11.9 (DME) Dexcom G7 Precision Instrument Maker Misc See Rx Instructions .Route Qty: 1 0RF Rx Instructions: ACHS lisinopril-hydrochlorothiazide 20-25 mg tablet 1 tablet PO DAILY Qty: 90 3RF Ozempic 1 mg/dose (4 mg/3 mL) pen injector 1 mg subcut WEEKLY Qty: 3 3RF pantoprazole 40 mg tablet,delayed release (DR/EC) See Rx Instructions .ROUTE .COMPLEX Qty: 90 0RF Dose Instruction: TAKE 1 TABLET BY MOUTH EVERY DAY Rx Instructions: TAKE 1 TABLET BY MOUTH EVERY DAY verapamil 240 mg tablet extended release See Rx Instructions .ROUTE .COMPLEX Qty: 90 1RF Dose Instruction: TAKE 1 TABLET BY MOUTH EVERY DAY Rx Instructions: TAKE 1 TABLET BY MOUTH EVERY DAY citalopram 20 mg tablet See Rx Instructions .ROUTE .COMPLEX Qty: 90 1RF Dose Instruction: 20 MG ORALLY DAILY Rx Instructions: 20 MG ORALLY DAILY (DME) Dexcom G7 Sensor Device See Rx Instructions .ROUTE .COMPLEX Qty: 1 1RF Dose Instruction: BEFORE MEALS AND AT BEDTIME Rx Instructions: BEFORE MEALS AND AT BEDTIME Follow-up/Referrals: Mark Anthony Hayden DO [Primary Care Provider, Family Practice] Quality Stroke Scale Stroke Scale 1: Stroke scale time:: 10:15 1a Level of consciousness: alert-0 1b Level of consciousness questions: answers both correctly-0 1c Level of consciousness commands: obeys both correctly-0 2 Best gaze: normal-0 3 Visual: no visual loss-0 4 Facial palsy: normal-0 5a Motor: left arm: no drift-0 5b Motor: right arm: no drift-0 6a Motor: left leg: no drift-0 6b Motor: right leg: no drift-0 7 Limb ataxia: present in one limb-1 ( decreased coordination left hand) 8 Sensory: pinprick less sharp-1 9 Best language: no aphasia-0 10 Dysarthria: normal-0 11 Extinction and inattention: no abnormality-0 Level:: 2
[2024-12-21 10:36] LABS: Hematocrit 38.8 % (37.0-47.0); Hemoglobin 13.2 g/dL (12.0-15.0); Immature Granulocyte Percent A 0.5 % (0-0.5); Lymphocytes Absolute Auto 4.35 K/mm3 (0.9-3.2); Mean Corpuscular HGB Conc 34.0 g/dl (32-36); Mean Corpuscular Hemoglobin 29.6 pg (26-34); Mean Corpuscular Volume 87.0 fl (80-100); Nucleated Red Blood Cells Absolute Auto 0.000 K/mm3 (0.0-0.012); Nucleated Red Blood Cells Perc 0.0 % (0.0-0.2); Platelet Count Result 252 k/mm3 (150-375); Red Blood Count 4.46 M/mm3 (4.2-5.4); White Blood Count 11.6 K/mm3 (4.5-10.0)
[2024-12-21 10:46] LABS: Alanine Aminotransferase 15 U/L (6-35); Albumin Level 3.6 g/dL (3.5-5.1); Alkaline Phosphatase 117 U/L (38-126); Anion Gap 6 mmol/L (4-12); Aspartate Amino Transferase 19 U/L (14-36); Bilirubin,Total 0.6 mg/dL (0.2-1.3); Blood Urea Nitrogen 10 mg/dL (7-17); Calcium 8.6 mg/dL (8.4-10.2); Carbon Dioxide 25 mmol/L (22-30); Chloride 96 mmol/L (98-107); Estimated CRCL calculation 91 ml/min; Estimated Glomerular Filt Rate > 60; Glucose 114 mg/dL (65-110); Potassium 3.9 mmol/L (3.4-5.0); Sodium 127 mmol/L (137-145); Total Protein 6.5 g/dL (6.3-8.2)
[2024-12-21 10:53] LABS: INR 1.0; Partial Thromboplastin Time 21.8 Seconds (22.3-36.8); Prothrombin Time 13.2 Seconds (11.1-14.7)
[2024-12-21 10:53] LABS: Add Urine Microscopic? NO; Appearance Urine Clear (Clear); Glucose Urine UA Negative (Negative); Leukocyte Esterase Ur Negative LEU/UL (Negative); Nitrate Urine Negative (Negative); Specific Grav Ur 1.011 (1.001-1.035)
[2024-12-21] MEDS: ASPIRIN 81 MG CHEWABLE TABLET 324 MG PO (11:35)
--- NOTE | 2024-12-21 11:43 | PC.NURSE ---
Pippa from the [facility] transfer center called and stated that the patient is accepted to the facility but at this time we are on a wait list until a bed opens up. the accepting physician is Dr. Obando.
== END 2024-12-21 15:33 | disposition short-term general hospital (02) ==
PROVIDERS: Emergency Provider Emergency Medicine; PCP Family Medicine
DX: R20.0 Anesthesia of skin (principal); R20.2 Paresthesia of skin; I10 Essential (primary) hypertension; E66.01 Morbid (severe) obesity due to excess calories; Z68.39 Body mass index [BMI] 39.0-39.9, adult; E78.5 Hyperlipidemia, unspecified; K21.9 Gastro-esophageal reflux disease without esophagitis; F32.A Depression, unspecified; F17.210 Nicotine dependence, cigarettes, uncomplicated; Z90.710 Acquired absence of both cervix and uterus; Z90.49 Acquired absence of other specified parts of digestive tract; Z79.899 Other long term (current) drug therapy; Z79.85 Long-term (current) use of injectable non-insulin antidiabetic drugs; R94.31 Abnormal electrocardiogram [ECG] [EKG]
CPT/HCPCS: 36415; 70496; 70498; 80053; 81003; 82948; 83605; 85025; 85610; 85730; 93005; 99285; A9270; Q9967